=== PATIENT | female | born 2000 | race Two or more races ===

== ENCOUNTER 2024-05-04 02:32 | Emergency (ER) | payer BC, OTHER ==
[~2024-05-04] VITALS: Ht 172.7 cm; Wt 115.9 kg
[2024-05-04 02:36] VITALS: BP 125/76; RESP 16; O2SAT 96
[2024-05-04 02:48] VITALS: PULSE 83
== END 2024-05-04 06:37 | disposition left against medical advice (07) ==
LOC: ER 02:32
DX: F41.9 Anxiety disorder, unspecified (principal); F41.0 Panic disorder [episodic paroxysmal anxiety]; R20.0 Anesthesia of skin; Z53.21 Procedure and treatment not carried out due to patient leaving prior to being seen by health care provider
CPT/HCPCS: 93005